=== PATIENT | female | born 1970 ===

== ENCOUNTER 2023-02-28 16:38 | Emergency (ER) | payer OTHER, SELFPAY ==
--- NOTE | ~2023-02-28 | XR_ITS ---
EXAMINATION: XR FOOT, LEFT CLINICAL INFORMATION: First toe pain status post trauma COMPARISON: None available. TECHNIQUE: AP, lateral, and oblique views of the left foot. FINDINGS: Acute nondisplaced transverse relative fracture through the proximal shaft of the first distal phalanx. No articular surface involvement or dislocation. XR/XR foot LT min 3V IMPRESSION: Acute nondisplaced transverse relative fracture through the proximal shaft of the first distal phalanx.
--- NOTE | 2023-02-28 16:56 | ED_ITS ---
HPI - General Adult General Chief complaint: Extremity Injury, Lower Stated complaint: Left foot big toe injury Time Seen by Provider: 02/28/23 20:16 History of Present Illness HPI narrative: Patient is a 52-year-old female who presents emergency department for evaluation of left great toe injury. Reports that she was walking up the stairs when she accidentally tripped on the cord of her backing him in her pants, subsequently she scraped the left great toe against the edge of the stair along the carpet. Reports the at the base of her nail bed was pushed back in she had difficulty getting the bleeding to stop. She is unaware of the date of her last tetanus vaccine. She has increasing pain with weight-bearing. She denies any head strike or loss of consciousness with this fall. She is not on anticoagulants Related Data Previous Rx's Medication Instructions Recorded cephalexin 500 mg capsule 500 mg PO QID #27 caps 02/28/23 oxycodone 5 mg tablet 5 mg PO Q6H PRN pain #7 tabs 02/28/23 Allergies Allergy/AdvReac Type Severity Reaction Status Date / Time No Known Allergies Allergy Verified 02/28/23 17:03 Review of Systems Review of Systems: Yes all other systems are reviewed and are negative [facility] Past Medical History Attestation statement: The following information was validated with the patient. Source: old records reviewed Social History Social History Advance Directives: No Advance Directives Information Provided: No Physical Exam ED Vital Signs: Vital Signs - 24 hr 02/28/23 16:59 02/28/23 19:53 Temperature 98.3 F Pulse Rate 87 82 Respiratory Rate 16 18 Blood Pressure 107/77 121/76 Pulse Oximetry 98 99 Oxygen Delivery Method Room Air Room Air BMI result Body Mass Index 26.2 Appearance: Alert.?Oriented to person, place and time. No acute distress.?Normal affect. Neck: Normal inspection.? Neck supple.?? CVS: Heart sounds normal. Normal heart rate and rhythm.? Pulses normal.?? Respiratory: No respiratory distress.? Lung sounds clear to auscultation bilaterally?? Abdomen: Soft and non-tender. ? Skin: Skin warm and dry.? Normal skin color.? ? Extremities: Localized edema to the left great toe, with avulsion of the skin at the base of the nail bed, bleeding controlled.? No calf ttp? Neuro: Moves all extremities spontaneously. Sensation intact bilaterally. Ambulates with antalgic gait. Course Course Course Narrative: This is a rapid medical exam: Additional HPI, ROS, PE not included below will be deferred to primary provider. Patient is a 52-year-old female presenting to the emergency department with complaint of left great toe pain. States she was walking up stairs and got tripped up on cord of vacuum cooker cleaner and her pants. States skin was pushed back and she has had difficulty getting it to stop bleeding. Bleeding controlled in triage. Unsure of last tetanus. Plan-Tdap, x-ray Medications Administered Discontinued Medications Generic Name Dose Route Start Last Admin Trade Name Freq PRN Reason Stop Dose Admin Diphtheria/Tetanus/Acell Pertussis 0.5 ml 02/28/23 17:02 02/28/23 19:55 Diphth,Pertus(Acell),Tet Adult 0.5 Ml Syringe IM 02/28/23 17:03 0.5 ml .ONCE ONE Administration Medical Decision Making Medical Decision Making MDM Narrative: Patient is a 52-year-old female who presents emergency department for evaluation of left great toe pain s/p mechanical injury. Reviewed x-ray imaging which rev eals an acute nondisplaced transverse fracture through the proximal shaft of the 1st distal phalanx reviewed these findings with patient, digit was antonio taped, and applied in a offloading shoe, tolerating weight-bearing well with this. Wound was cleansed with saline, clean dry dressing was applied in, currently without evidence of infection, her Tdap was updated and advised patient I will send prescription for prophylactic antibiotic to the pharmacy, she received her 1st dose of Keflex in the ED. advised outpatient follow-up with orthopedics/ PCP. Differential Diagnosis Differential Diagnoses: The differential diagnosis associated with the presentation includes (Noted above) Independent Interpretation I performed an independent interpretation of an: Plain X-Ray (Is personally interpreted XR imaging of her left foot and agree with radiologist impression, evidence of acute fracture) Radiology Impression Discussion of test interpretation with radiology: I have reviewed the radiologist's reading. Radiologist Impression: XR/XR foot LT min 3V IMPRESSION: Acute nondisplaced transverse relative fracture through the proximal shaft of the first distal phalanx. Independent Historian Clinical information obtained from an independent historian. History obtained from or confirmed by: Spouse ( who confirms history) External Record Review External record reviewed: Other ([employer], no conflicts to oxycodone) Prescription Management I considered prescription management with: Pain Medication and Antibiotic Discharge Plan Discharge Clinical Impression: Fracture of toe Patient Disposition: Home, Self-Care Instructions: Toe Fracture (ED) Additional Instructions: Wear the shoe at all times while walking/weightbearing to alleviate pain and allow for healing You can take ibuprofen 200 mg, 3 tablets (600mg) every 6-8 hours as needed for pain, in addition to Tylenol 500 mg, 2 tablets (1,000mg) every 4-6 hours as needed for pain, but not to exceed 3 doses daily (3,000mg).? Have sent a prescription for oxycodone to your pharmacy to use as needed for severe pain. This is a narcotic medication, it may be addictive. You should not drive, drink alcohol, or work while taking this medication. Please follow-up with your PCP/orthopedics Prescriptions: New oxycodone 5 mg tablet 5 mg PO Q6H PRN (Reason: pain) Qty: 7 0RF Rx Instructions: Partial Fill upon patient request. cephalexin 500 mg capsule 500 mg PO QID Qty: 27 0RF Referrals: Mason Alvarado MD [Physician] - Neil Tsai MD [Primary Care Provider] -
[2023-02-28 16:59] VITALS: BP 107/77; PULSE 87; RESP 16; TEMP 36.8; O2SAT 98; BMI 26.2
[2023-02-28 19:53] VITALS: BP 121/76; PULSE 82; RESP 18; O2SAT 99
[2023-02-28] MEDS: Diphth,Pertus(ACell),Tet Adult 0.5 ML SYRINGE IM (19:55)
--- NOTE | 2023-02-28 19:59 | PC.NURSE ---
tdap given left deltoid, VIS handout provided, pt tolerated well.
--- NOTE | 2023-02-28 20:07 | PC.NURSE ---
left great toe taken down in exam room- no active bleeding at this time, re-covered area with nonstick and band-aid call bailey within reach
--- OUTSIDE RECORDS SUMMARY | 2023-02-28 20:09 | XMS_ITS | Continuity of Care Document ---
Author Name Unknown Organization [facility] Adult Address [address] [place] [address]- Care Team Providers Care Drafting Instructor Name Role Phone Neil Tsai MD Primary Care Physician [place] [facility] [place] - 05/23/21 [facility] Adult [address] [place] [address]- Attending Physician: Jordana Angelo Admitting Physician: Jordana Angelo Referring Physician: AdmJordana steven Allergies, Adverse Reactions, Alerts Substance Reaction Severity Status NKA Active Medications meloxicam 7.5 mg oral tablet 1 tablet = 7.5 mg, By Mouth, Daily, PRN Pain , Moderate, # 30 tablet, 0 Refills, Maintenance, 04/22/21 17:12:00 EDT, [facility]/pharmacy #[id number], Partial fill upon patient request if the prescription is for aschedule II opioid drug., 160, cm, 02/26/21 12:16:0... Start Date: 04/22/21 Stop Date: 05/22/21 Status: Ordered Social History Social History Type Response Smoking Status Never (less than 100 in lifetime) entered on: 02/26/21 Sex
--- OUTSIDE RECORDS SUMMARY | 2023-02-28 20:09 | XMS_ITS | Continuity of Care Document ---
Author Name Unknown Organization [facility] Adult Address [address] [place] [address]- Care Team Providers Care Ribbon Tier Name Role Phone Neil Tsai MD Primary Care Physician [phone] Encounter [facility] [place] Date(s): 06/01/21 - 07/01/21 [facility] Adult [address] [place] [address]- Attending Physician: Jordana Angelo Admitting Physician: Jordana Angelo Referring Physician: AdmJordana steven Allergies, Adverse Reactions, Alerts Substance Reaction Severity Status NKA Active Medications meloxicam 7.5 mg oral tablet 1 tablet = 7.5 mg, By Mouth, Daily, PRN Pain , Moderate, # 30 tablet, 0 Refills, Maintenance, 04/22/21 17:12:00 EDT, [facility]/pharmacy #[id number], Partial fill upon patient request if the prescription is for aschedule II opioid drug., 160, cm, 02/26/21 12:16:0... Start Date: 04/22/21 Stop Date: 05/22/21 Status: Ordered Social History Social History Type Response Smoking Status Never (less than 100 in lifetime) entered on: 02/26/21 Sex
--- OUTSIDE RECORDS SUMMARY | 2023-02-28 20:09 | XMS_ITS | Continuity of Care Document ---
Author Name Unknown Organization [facility] Adult Address [address] [place] [address]- Care Team Providers Care Manager Payroll Name Role Phone Quin DIMAS, Neil Primary Care Physician [phone] Encounter [facility] [place] Date(s): 04/21/21 - 05/21/21 [facility] Adult [address] [place] [address]- Allergies, Adverse Reactions, Alerts Substance Reaction Severity Status NKA Active Medications meloxicam 7.5 mg oral tablet 1 tablet = 7.5 mg, By Mouth, Daily, PRN Pain , Moderate, # 30 tablet, 0 Refills, Maintenance, 04/22/21 17:12:00 EDT, [facility]/pharmacy #[id number], Partial fill upon patient request if the prescription is for aschedule II opioid drug., 160, cm, 02/26/21 12:16:0... Start Date: 04/22/21 Stop Date: 05/22/21 Status: Ordered Social History Social History Type Response Smoking Status Never (less than 100 in lifetime) entered on: 02/26/21 Sex
--- OUTSIDE RECORDS SUMMARY | 2023-02-28 20:09 | XMS_ITS | Continuity of Care Document ---
Author Name Unknown Organization [facility] Adult Address [address] [place] [address]- Care Team Providers Care Waredresser Name Role Phone Quin DIMAS, Neil Primary Care Physician [phone] Encounter [facility] [place] Date(s): 04/21/21 - 05/23/21 [facility] Adult [address] [place] [address]- Attending Physician: Satinder Ag MD Allergies, Adverse Reactions, Alerts Substance Reaction Severity Status NKA Active Medications meloxicam 7.5 mg oral tablet 1 tablet = 7.5 mg, By Mouth, Daily, PRN Pain , Moderate, # 30 tablet, 0 Refills, Maintenance, 04/22/21 17:12:00 EDT, [facility][id number], Partial fill upon patient request if the prescription is for aschedule II opioid drug., 160, cm, 02/26/21 12:16:0... Start Date: 04/22/21 Stop Date: 05/22/21 Status: Ordered Social History Social History Type Response Smoking Status Never (less than 100 in lifetime) entered on: 02/26/21 Sex
--- OUTSIDE RECORDS SUMMARY | 2023-02-28 20:09 | XMS_ITS | Continuity of Care Document ---
Author Name Unknown Organization [facility] Adult Address [address] [place] [address]- Care Team Providers Care Fish Hatchery Inspector Name Role Phone Quin DIMAS, [facility] Primary Care Physician [phone] [place] [facility] [place] 03/07/21 [facility] Adult [address], [place] [address] Allergies, Adverse Reactions, Alerts Substance Reaction Severity Status NKA Active Social History Social History Type Response Smoking Status Never (less than 100 in lifetime) entered on: 02/26/21 Sex
--- OUTSIDE RECORDS SUMMARY | 2023-02-28 20:09 | XMS_ITS | Continuity of Care Document ---
Author Name Unknown Organization [facility] Adult Address [address] [place] [address]- Care Team Providers Care Physical Science Aide Name Role Phone Neil Tsai MD Primary Care Physician [phone] [place] [facility] [place](s[place] 06/01/21 - 06/08/21 [facility] Adult [address] [place] [address]- Encounter Diagnosis Breast pain, left(Discharge Diagnosis) - 06/01/21 Skin tags, multiple acquired(Discharge Diagnosis) - 06/01/21 Depression(Discharge Diagnosis) - 06/01/21 Attending Physician: Neil Tsai MD Allergies, Adverse Reactions, Alerts Substance Reaction Severity Status NKA Active Medications meloxicam 7.5 mg oral tablet 1 tablet = 7.5 mg, By Mouth, Daily, PRN Pain , Moderate, # 30 tablet, 0 Refills, Maintenance, 04/22/21 17:12:00 EDT, [facility]/pharmacy #[id number], Partial fill upon patient request if the prescription is for aschedule II opioid drug., 160, cm, 02/26/21 12:16:0... Start Date: 04/22/21 Stop Date: 05/22/21 Status: Ordered Problem List Diagnosis Diagnosis Type Effective Dates Health Status Clinical Service Informant Breast pain, left Discharge Diagnosis 06/01/21 Skin tags, multiple acquired Discharge Diagnosis 06/01/21 Depression Discharge Diagnosis 06/01/21 Vital Signs Most recent to oldest [Reference Range]: 1 Height 160 cm (06/01/21 4:27 PM) Weight 63.7 kg (06/01/21 4:27 PM) Oxygen Saturation [94-100 %] 98 % (06/01/21 4:27 PM) Pulse Rate [55-90 bpm] 68 bpm (06/01/21 4:27 PM) Body Mass Index [18.5-24.99] 24.88 (06/01/21 4:27 PM) Blood Pressure [90-138/55-84 mm Hg] 125/ 84mm Hg (06/01/21 4:27 PM) Respiratory Rate [16-30 br/min] 18 br/mi n (06/01/21 4:27 PM) Temperature [96.8-100.4 DegF] 98.2 DegF (06/01/21 4:27 PM) Blood pressure sites Arm, left (06/01/21 4:27 PM) Temperature Route Oral (06/01/21 4:27 PM) Weight Obtained Via Standing scale (06/01/21 4:27 PM) Social History Social History Type Response Smoking Status Never (less than 100 in lifetime) entered on: 02/26/21 Sex
--- OUTSIDE RECORDS SUMMARY | 2023-02-28 20:10 | XMS_ITS | Continuity of Care Document ---
Author Name Unknown Organization [facility] Address [address] [place] [address]- Care Team Providers Care Ammonia Distiller Name Role Phone Neil Tsai MD Primary Care Physician Encounter [facility] [place] [id number] Date(s): 03/31/22 - 04/30/22 [facility] [address] [place] [address]- Attending Physician: Jordana Angelo Admitting Physician: Jordana Angelo Referring Physician: Admtr, Ar8 Allergies, Adverse Reactions, Alerts No Known Allergies Medications meloxicam 7.5 mg oral tablet 1 tablet = 7.5 mg, By Mouth, Daily, PRN Pain , Moderate, # 30 tablet, 0 Refills, Maintenance, 04/22/21 17:12:00 EDT, [id number], Partial fill upon patient request if the prescription is for aschedule II opioid drug., 160, cm, 02/26/21 12:16:0... Start Date: 04/22/21 Stop Date: 05/22/21 Status: Ordered Metamucil 400 mg oral capsule 1 capsule = 400 mg, By Mouth, 2 times a day, PRN as needed for constipation, with at least 8 ouncesof water, # 160 capsule, 1 Refills, Acute 03/31/23 15:01:00 EDT, 03/31/22 15:00:00 EDT, Capsule, [id number], Partial fill upon patient request... Start Date: 03/31/22 Stop Date: 03/31/23 Status: Ordered PEG-3350 with Electrolytes Lemon (Eqv-GoLYTELY) oral powder for reconstitution See Instructions, Mix powder with water according to the product label. Follow the [facility] instruction sheet stating when to drink the prep fluid on the evening before the colonosocpy 8 oz every 20 minutes, # 1 each, 0 Refills, Maintenance, 03/31/22... Start Date: 03/31/22 Status: Ordered Social History Social History Type Response Smoking Status Never (less than 100 in lifetime) entered on: 02/26/21 Sex Patient Care team information Personnel Name: Neil Tsai MD Address: Address: [address] [place] [id number]
--- OUTSIDE RECORDS SUMMARY | 2023-02-28 20:10 | XMS_ITS | Continuity of Care Document ---
Author Name Unknown Organization [facility] Address [address] [place] [address]- Care Team Providers Care Scraper Loader Operator Name Role Phone Neil Tsai MD Primary Care Physician En[place] [facility] [place] Date[place]s): 11/26/22 - 11/26/[address] [address]- Discharge Disposition: A-D/C Home Attending Physician: Mariajose Lyn MD Admitting Physician: Mariajose Lyn MD Referring Physician: Mariajose Lyn MD Allergies, Adverse Reactions, Alerts No Known Allergies [...] according to the product label. Follow the [facility] instruction sheet stating when to drink the prep fluid on the evening before the colonosocpy 8 oz every 20 minutes, # 1 each, 0 Refills, Maintenance, 03/31/22... Start Date: 03/31/22 Status: Ordered Vital Signs Most recent to oldest [Reference Range]: 1 2 3 Oxygen Saturation [94-100 %] 99 % (11/26/22 1:30 PM) 99 % (11/26/22 1:25 PM) 99 % (11/26/22 1:22 PM) Pulse Rate [55-90 bpm] 91 bpm *H* (11/26/22 11:35 AM) Blood Pressure [90-138/55-84 mm Hg] 115/74mm Hg (11/26/22 1:30 PM) 114/74mm Hg (11/26/22 1:25 PM) 121/81mm Hg (11/26/22 1:22 PM) Respiratory Rate [16-30 br/min] 18 br/min (11/26/22 1:30 PM) 12 br/min *L* (11/26/22 1:25 PM) 20 br/min (11/26/22 1:22 PM) Temperature [96.8-100.4 DegF] 98.5 DegF (11/26/22 11:35 AM) Mode of Delivery (Oxygen) Room air (11/26/22 1:30 PM) Room air (11/26/22 1:25 PM) Room air (11/26/22 1:22 PM) Blood pressure sites Arm, left (11/26/22 1:30 PM) Arm, left (11/26/22 1:25 PM) Arm, left (11/26/22 1:22 PM) Temperature Route Temporal (11/26/22 11:35 AM) Dry Weight 67.4 kg (11/26/22 11:35 AM) Dry Weight Obtained Via Standing scale (11/26/22 11:35 AM) Social History Social History Type Response Smoking Status Never (less than 100 in lifetime) entered on: 02/26/21 Sex Patient Care team information Care Team Personnel Name: Neil Tsai MD Position: S Physician - Primary Care Member Role: PCP Address: Address: [address] [facility] [address] [place] [address]- Care Team Related Persons Name: CURT VALLEJO Address: home [address] [address] Name: MECHE MEYER Address: home [address] [facility] [place] [address] Name: LAURA MEYER Address: home [address] [place], [place]
--- OUTSIDE RECORDS SUMMARY | 2023-02-28 20:10 | XMS_ITS | Continuity of Care Document ---
Author Name Unknown Organization [facility] Adult Address [address] [place] [address]- Care Team Providers Care Geodetic Surveyor Name Role Phone Quin DIMAS, Neil Primary Care Physician [place] [facility] [place](s): 04/17/21 - 05/17/21 [facility] Adult [address] [place] [address]- Allergies, Adverse Reactions, Alerts Substance Reaction Severity Status NKA Active Medications meloxicam 7.5 mg oral tablet 1 tablet = 7.5 mg, By Mouth, Daily, PRN Pain , Moderate, # 30 tablet, 0 Refills, Maintenance, 04/22/21 17:12:00 EDT, [facility]/pharmacy #[id number], Partial fill upon patient request if the prescription is for aschedule II opioid drug., 160, cm, 02/26/21 12:16:0... Start Date: 04/22/21 Stop Date: 05/22/21 Status: Ordered Social History Social History Type Response Smoking Status Never (less than 100 in lifetime) entered on: 02/26/21 Sex
--- OUTSIDE RECORDS SUMMARY | 2023-02-28 20:10 | XMS_ITS | Continuity of Care Document ---
Author Name Unknown Organization [facility] Adult Address [address] [place] [address]- Care Team Providers Care Chief Sales Officer Name Role Phone Tyson Stringer Primary Care Physician Unavailab le Encounter [facility] Date(s): 01/15/21 - 02/14/21 [facility] Adult [address] [place] [address]- Allergies, Adverse Reactions, Alerts Substance Reaction Severity Status NKA Active
--- OUTSIDE RECORDS SUMMARY | 2023-02-28 20:10 | XMS_ITS | Continuity of Care Document ---
Author Name Unknown Organization [facility] Adult Address [address] [place] [address]- Care Team Providers Care Desktop Architect Name Role Phone Qiun DIMAS, Neil Primary Care Physician [phone] [place] [facility] [place] Date(s): 02/26/21 - 03/05/[address] [facility] Adult [address] [place] [address]- Encounter Diagnosis Well adult exam(Discharge Diagnosis) - 03/01/21 Left shoulder pain(Discharge Diagnosis) - 03/01/21 Attending Physician: Neil Tsai MD Allergies, Adverse Reactions, Alerts Substance Reaction Severity Status NKA Active Problem List Diagnosis Diagnosis Type Effective Dates Health Status Cl inical Service Informant Well adult exam Discharge Diagnosis 03/01/21 Left shoulder pain Discharge Diagnosis 03/01/21 Vital Signs Most recent to oldest [Reference Range]: 1 Height 160 cm (02/26/21 12:16 PM) Social History Social History Type Response Smoking Status Never (less than 100 in lifetime) entered on: 02/26/21 Sex
--- OUTSIDE RECORDS SUMMARY | 2023-02-28 20:10 | XMS_ITS | Continuity of Care Document ---
Author Name Unknown Organization [facility] Adult Address [address] [place] [address]- Care Team Providers Care Motor Vehicle Emissions Inspector Name Role Phone Tyson Stringer Primary Care Physician Unavailab le Encounter [facility] Date(s): 08/22/20 - 11/02/20 [facility] Adult [address] [place] [address]- Attending Physician: Francie Westfall NP Allergies, Adverse Reactions, Alerts Substance Reaction Severity Status NKA Active
--- OUTSIDE RECORDS SUMMARY | 2023-02-28 20:10 | XMS_ITS | Continuity of Care Document ---
Author Name Unknown Organization [facility] Address [address] [place] [address]- Care Team Providers Care Security Dispatcher Name Role Phone Not on Staff, PCP Primary Care Physician Unavail able [place] [facility] [place] - 12/26/[address] [address]- Attending Physician: Mariajose Lyn MD Admitting Physician: Mariajose Lyn MD Referring Physician: Not on Staff, Referring MD Allergies, Adverse Reactions, Alerts No Known [...] according to the product label. Follow the [facility] instruction sheet stating when to drink the prep fluid on the evening before the colonosocpy 8 oz every 20 minutes, # 1 each, 0 Refills, Maintenance, 03/31/22... Start Date: 03/31/22 Status: Ordered Social History Social History Type Response Smoking Status Never (less than 100 in lifetime) entered on: 02/26/21 Sex Patient Care team information Care Team Personnel Name: Not on Staff, PCP Position: S Physician (General Medicine) Member Role: PCP Care Team Related Persons Name: CURT VALLEJO Address: [address] [place] [address] Name: MECHE MEYER Address: home [address] [place] [address], [place] [address] Name: LAURA MEYER Address: home [id number] [place] [address]
[2023-02-28] MEDS: cephALEXin 500 MG CAPSULE PO (21:04)
== END 2023-02-28 21:09 | disposition home or self-care (01) ==
PROVIDERS: Emergency Provider Emergency Medicine; PCP Internal Medicine
DX: S92.402A Displaced unspecified fracture of left great toe, initial encounter for closed fracture (principal); S90.412A Abrasion, left great toe, initial encounter; M79.672 Pain in left foot; W10.9XXA Fall (on) (from) unspecified stairs and steps, initial encounter; Y93.9 Activity, unspecified; Y92.9 Unspecified place or not applicable; Y99.9 Unspecified external cause status; Z23 Encounter for immunization
CPT/HCPCS: 73630; 90471; 90715; 99284

== ENCOUNTER 2023-03-10 15:12 | Outpatient (AMB) | payer OTHER, SELFPAY ==
--- NOTE | 2023-03-10 15:22 | MHC.OFFVIS ---
Intake Intake Visit Reasons: FC- Lt Foot big toe inj DOI02/28/2023 Intake Note: Pt presents to the office today for a left foot big toe FC. Pt states she was walking up stairs and her foot got caught and her toe shifted to the left and then pt states she maneuvered it back to the center. She states she has pain in the tip of her toe and on the bottom side. Pt states the swelling is improving and the ER gave her a shoe to wear. Allergies No Known Allergies Allergy (Verified 03/10/23 15:24) HPI FC- Lt Foot big toe inj DOI02/28/2023 HPI Details 52-year-old female who presents in the office today, as a new patient, for an evaluation of left foot pain. The patient presented to the ED on 02/28/2023 status post tripping while going upstairs on a cord. This caused her to scrape her left great toe on the stair along the carpet. X-rays of the left foot were obtained. The left great toe was antonio tapes and she was placed in an offloading shoe. She reports pain on the tip of the toe and the on the bottom of the left great toe. She claims the edema is improving. She states she ?pried the nail up? to straightening it out. She presented with the great toe bandaged but not antonio taped in a post-op shoe. 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 Slight edema at the IP joint. Able to flex and extend. Mild tenderness to palpation over the fracture site. Sensation intact. Capillary refill is brisk. Office Procedures Fracture Care Fracture Billing Code: Fracture Billing Code Assessment & Plan Assessment & Plan (1) Fracture of left great toe: Code(s): S92.402A - Displaced unspecified fracture of left great toe, initial encounter for closed fracture Qualifiers: Encounter type: initial encounter Fracture alignment: nondisplaced Fracture type: closed Phalanx: proximal Qualified Code(s): S92.415A - Nondisplaced fracture of proximal phalanx of left great toe, initial encounter for closed fracture Plan Ms. Yost is a 52-year-old female who presents in the office today, as a new patient, for an evaluation of left foot pain. The patient presented to the ED on 02/28/2023 status post tripping while going upstairs on a cord. This caused her to scrape her left great toe on the stair along the carpet. X-rays of the left foot were obtained. The left great toe was antonio tapes and she was placed in an offloading shoe. She reports pain on the tip of the toe and the on the bottom of the left great toe. She claims the edema is improving. I educated the patient on antonio taping the toes while it is healing. She was given a toe spacer while in the office today to aid with comfort while budding taping. I recommended that at lunch and at night time she can take OTC Tylenol or Ibuprofen for edema. She should elevate the foot at much as possible. She can continue to work on bending the toe to work on stiffness. She can return to normal activities as tolerated, but should avoid high impact activities like running. Follow up will be in 3 weeks with repeat x-rays, or sooner if needed. X-rays of the left foot which were obtained while in the office today and were reviewed by me, Agatha Rey PA-C, redemonstrated a proximal left great toe fracture. X-rays of the left foot, obtained on 02/28/2023, revealed: Acute nondisplaced transverse relative fracture through the proximal shaft of the first distal phalanx. Orders: Orders XR foot LT min 3V 03/10/23 M79.673 - Pain in unspecified foot Patient Instructions: Scribed for Agatha Rey PA-C by Wendy Lainez medical transcriptionist, on 03/10/2023 at 3:29 pm, EST. Coding Level of Care Code New Pt Level 4 (68754) Diagnoses Closed nondisplaced fracture of proximal phalanx of left great toe, initial encounter S92.415A Encounter type: initial encounter Fracture alignment: nondisplaced Fracture type: closed Phalanx: proximal CPT Codes Fracture Care - Fracture Billing Code: Fracture Billing Code ([id number])
== END 2023-03-10 15:26 | disposition home or self-care (01) ==
PROVIDERS: PCP Internal Medicine; Visit Provider Physician Assistant
DX: S92.415A Nondisplaced fracture of proximal phalanx of left great toe, initial encounter for closed fracture (principal)
CPT/HCPCS: 99204

== ENCOUNTER 2023-03-10 17:27 | Outpatient (REF) | payer OTHER, SELFPAY ==
--- NOTE | ~2023-03-10 | XR_ITS ---
EXAMINATION: XR FOOT, LEFT CLINICAL INFORMATION: Pain COMPARISON: Foot radiographs 02/28/2023 TECHNIQUE: AP, lateral, and oblique views of the left foot. FINDINGS: Periosteal reaction surrounding the minimally displaced fracture of the base of the first distal phalanx in similar alignment. No definite bridging bony callus formation. No new fracture or dislocation. Joint spaces are maintained. Soft tissues are unremarkable. No tibiotalar joint effusion. Achilles tendon enthesophytes. XR/XR foot LT min 3V IMPRESSION: 1. Periosteal reaction surrounding the minimally displaced fracture of the base of the first distal phalanx in similar alignment. No definite bridging bony callus formation.
== END 2023-03-10 17:28 | disposition home or self-care (01) ==
LOC: HO.HOSX 17:27
PROVIDERS: Visit Provider Physician Assistant
DX: S92.415A Nondisplaced fracture of proximal phalanx of left great toe, initial encounter for closed fracture (principal); W10.9XXA Fall (on) (from) unspecified stairs and steps, initial encounter; Y93.9 Activity, unspecified; Y92.9 Unspecified place or not applicable; Y99.9 Unspecified external cause status
CPT/HCPCS: 73630

== ENCOUNTER 2023-03-31 09:27 | Outpatient (REF) | payer OTHER, SELFPAY ==
--- NOTE | ~2023-03-31 | XR_ITS ---
EXAMINATION: XR FOOT, LEFT CLINICAL INFORMATION: Pain. COMPARISON: Radiographs dated 03/10/2023 and 02/28/2023. TECHNIQUE: AP, lateral, and oblique views of the left foot. FINDINGS: Bony alignment and mineralization are normal. A minimally displaced transverse fracture is again seen of the base of the left first distal phalanx. There is mild periosteal callus formation. No dislocation is seen. There is no left ankle joint effusion. Boehler's angle is normal. There is no calcaneal spur. No focal soft tissue swelling, gas or foreign body is seen. XR/XR foot LT min 3V IMPRESSION: A minimally displaced transverse fracture is again seen of the base of the first distal phalanx, in stable alignment. There is mild periosteal callus formation.
== END 2023-03-31 09:28 | disposition home or self-care (01) ==
LOC: HO.HOSX 09:27
PROVIDERS: Visit Provider Physician Assistant
DX: S92.415A Nondisplaced fracture of proximal phalanx of left great toe, initial encounter for closed fracture (principal)
CPT/HCPCS: 73630

== ENCOUNTER 2023-03-31 14:54 | Outpatient (AMB) | payer OTHER, SELFPAY ==
--- NOTE | 2023-03-31 15:04 | MHC.OFFVIS ---
Intake Vital Signs 03/31/23 15:05 Height 5 ft 3 in Weight 148 lb BMI 26.2 Intake Visit Reasons: OV - Lt big toe DOI 02/28/23 Intake Note: Truong is a 52 year old female who presents today for a follow up appointment for her left big toe, DOI 02/28/23. Patient reports doing well. Allergies No Known Allergies Allergy (Verified 03/31/23 15:05) HPI OV - Lt big toe DOI 02/28/23 HPI Details 52-year-old female who presents in the office today for a follow up of a left great toe fracture, which occurred on 02/28/2023 status post tripping while going upstairs on a cord. 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 No ecchymosis, erythema, or edema. Very slight tenderness to palpation over the fracture site. Able to flex and extend. EHL intact. Sensation intact. Capillary refill is brisk. Assessment & Plan Assessment & Plan (1) Fracture of left great toe: Code(s): S92.402A - Displaced unspecified fracture of left great toe, initial encounter for closed fracture Qualifiers: Encounter type: initial encounter Fracture alignment: nondisplaced Fracture type: closed Phalanx: proximal Qualified Code(s): S92.415A - Nondisplaced fracture of proximal phalanx of left great toe, initial encounter for closed fracture Plan Ms. Yost is a 52-year-old female who presents in the office today for a follow up of a left great toe fracture, which occurred on 02/28/2023 status post tripping while going upstairs on a cord. The patient may return to normal activities as tolerated. She will follow up PRN, or sooner if needed. X-rays of the left great toe obtained while in the office today and reviewed by me, Agatha Rey PA-C, revealed routine healing of a left great toe fracture. Orders: Orders XR foot LT min 3V 03/31/23 M79.673 - Pain in unspecified foot Patient Instructions: Scribed for Agatha Rey PA-C by Wendy Lainez medical billing and coding specialist, on 03/31/2023 at 2:55 pm, EST. Coding Level of Care Code Est Pt Level 3 (68263) Diagnoses Closed nondisplaced fracture of proximal phalanx of left great toe, initial encounter S92.415A Encounter type: initial encounter Fracture alignment: nondisplaced Fracture type: closed Phalanx: proximal
[2023-03-31 15:05] VITALS: BMI 26.2
== END 2023-03-31 15:15 | disposition home or self-care (01) ==
PROVIDERS: PCP Internal Medicine; Visit Provider Physician Assistant
DX: S92.415D Nondisplaced fracture of proximal phalanx of left great toe, subsequent encounter for fracture with routine healing (principal)
CPT/HCPCS: 99213